=== PATIENT | female | born 1950 | race Two or more races ===

== ENCOUNTER 2018-12-30 11:07 | Inpatient (IN) | payer OTHER ==
[~2018-12-30] VITALS: Ht 157.5 cm; Wt 85.7 kg
[2018-12-30] MEDS ORDERED: HUMALOG KW100 UNIT/1 (11:46)
[2018-12-30] MEDS ORDERED: IRBESARTAN-HCT1 EACH PO (11:47)
[2018-12-30] MEDS ORDERED: LANTUS SOL100 UNIT/1 SUBCUTANEO (11:47)
[2018-12-30] MEDS ORDERED: PROTONIX40 MG PO (11:48)
[2018-12-30] MEDS ORDERED: OMEPRAZOLE20 MG PO (11:48)
[2018-12-30] MEDS ORDERED: SINGULAIR 5MG5 MG PO (11:48)
[2018-12-30] MEDS ORDERED: VENTOLIN HFA18 GM IH (11:49)
== END 2019-01-07 18:52 | disposition home or self-care (01) | DRG 331 ==
LOC: O/R 12-31 13:15 → SURH 01-04 05:12 → O/R 01-04 05:12 → SURH 01-04 10:30
PROVIDERS: ADMIT Colon & Rectal Surgery
PROC: 0DJD8ZZ Inspection of Lower Intestinal Tract, Via Natural or Artificial Opening Endoscopic (ICD-10-PCS; 2019-01-04)
PROC: 3E0F7GC Introduction of Other Therapeutic Substance into Respiratory Tract, Via Natural or Artificial Opening (ICD-10-PCS; 2019-01-04)
PROC: 0DTN4ZZ Resection of Sigmoid Colon, Percutaneous Endoscopic Approach (ICD-10-PCS; principal; 2019-01-04 10:30)
DX: K57.32 Diverticulitis of large intestine without perforation or abscess without bleeding (principal); I11.9 Hypertensive heart disease without heart failure; E11.9 Type 2 diabetes mellitus without complications; E78.00 Pure hypercholesterolemia, unspecified; G43.909 Migraine, unspecified, not intractable, without status migrainosus; D64.89 Other specified anemias

== ENCOUNTER 2019-01-12 00:13 | Emergency (ER) | payer OTHER ==
[~2019-01-12] VITALS: Ht 152.4 cm; Wt 94.8 kg
[~2019-01-12 00:13] MED LIST: HUMALOG KW100 UNIT/1; IRBESARTAN-HCT1 EACH PO; LANTUS SOL100 UNIT/1 SUBCUTANEO; OMEPRAZOLE20 MG PO; PROTONIX40 MG PO; SINGULAIR 5MG5 MG PO; VENTOLIN HFA18 GM IH
== END 2019-01-12 07:21 | disposition home or self-care (01) ==
LOC: ER 00:13
DX: G89.18 Other acute postprocedural pain (principal); R10.32 Left lower quadrant pain

== ENCOUNTER 2020-01-20 08:25 | Day surgery (SDC) | payer OTHER | END 2020-01-20 12:25 | disposition home or self-care (01) | LOC: AMB-ENDOS 08:25 | PROVIDERS: ATTEND Colon & Rectal Surgery | DX: K57.32 Diverticulitis of large intestine without perforation or abscess without bleeding (principal); K64.2 Third degree hemorrhoids; Z20.828 Contact with and (suspected) exposure to other viral communicable diseases ==